=== PATIENT | female | born 1965 ===

== ENCOUNTER 2017-11-01 07:36 | Outpatient (CLI) | payer OTHER ==
[~2017-11-01] VITALS: Ht 170.2 cm; Wt 75.3 kg
== END 2017-11-01 08:00 | disposition home or self-care (01) ==
LOC: OFIC 805 07:36
DX: H61.21 Impacted cerumen, right ear (principal); H91.8X1 Other specified hearing loss, right ear

== ENCOUNTER → 2020-07-21 | Outpatient (CLI) | payer OTHER | END | disposition home or self-care (01) | LOC: OFIC 805 09:45 | PROVIDERS: ATTEND Otolaryngology | DX: R09.89 Other specified symptoms and signs involving the circulatory and respiratory systems (principal); T17.298A Other foreign object in pharynx causing other injury, initial encounter ==